=== PATIENT | male | born 1955 | race Caucasian/White ===

== ENCOUNTER 2019-11-18 05:07 | Day surgery (SDC) | payer MEDICARE ==
[~2019-11-18] VITALS: Ht 172.7 cm; Wt 95.7 kg
[2019-11-18 05:43] LABS: HEMATOCRIT 45.6 % (42.0-54.0); HEMOGLOBIN 15.3 g/dL (13.5-17.5); MCH 31.9 pg (26.0-34.0); MCHC 33.6 g/dL (31.0-37.0); MEAN PLATELET VOLUME 10.3 fL (7.4-10.4); RBC 4.8 10x6/uL (4.20-6.10); RDW 12.9 % (11.5-14.5); WBC 8.7 10x3/uL (4.8-10.8)
[2019-11-18 06:33] VITALS: BP 137/80; Ht 172.7 cm; Wt 95.7 kg
--- NOTE | 2019-11-18 09:41 | NUR ---
0930-RECD TO ROOM FROM PACU. ALERT. IV PATENT LEFT HAND. RESP WITH EASE. R SHOULDER DRESSING DRY AND INTACT, IN SLING.
--- NOTE | 2019-11-18 11:11 | NUR ---
1110 PT MORE AWAKE AND IV REMOVED AND PRESSURE HELD, INSTRUCTIONS GIVEN
--- NOTE | 2019-11-18 11:12 | NUR ---
1000 PT MAY HAVE SLEEP APNEA AND ENCOURAGED TO BE IN RECLINER OR HOB ELEVATED TONIGHT. O2 SATS DROP IN 80S BUT RETURN QUICKLY
--- NOTE | 2019-11-20 14:38 | OP ---
PATIENT NAME: PAT MOSQUEDA MEDICAL RECORD: [id number] :53 LOCATION:[facility] ADMISSION DATE: SURGEON: RAFIQ GAONA MD DATE OF OPERATION: 11/18/2019 PREOPERATIVE DIAGNOSES: 1. Right shoulder pain/impingement. 2. Acromioclavicular arthrosis. 3. Possible rotator cuff tear. POSTOPERATIVE DIAGNOSES: 1. Right shoulder pain/impingement. 2. Acromioclavicular arthrosis. 3. Chondromalacia of the posterior humeral head. PROCEDURE PERFORMED: Right shoulder scope with subacromial decompression, distal clavicle excision, and limited glenohumeral debridement. INDICATIONS FOR PROCEDURE: Mr. Mosqueda is a 64-year-old male with history of right shoulder injury approximately 3 weeks ago. He has been having worsening pain since that time and MRI was concerning for possible rotator cuff injury. He is also having symptoms of shoulder impingement. He has had a previous rotator cuff repair in the past. I talked with him about these findings and options for conservative versus surgical management. He has elected to proceed with surgery for right shoulder arthroscopy. Risks, benefits and alternatives of surgery were discussed with the patient and consent was obtained. DESCRIPTION OF PROCEDURE: The patient was met in the holding area where his identity and confirmation of procedure was performed. The right upper extremity was marked. He was taken to the operating room where he was placed supine on the operating table and anesthesia was administered. He was then positioned in the left lateral decubitus position. Extremities were positioned and padded appropriately. Right upper extremity was prepped and draped in a sterile fashion. A stockinette was applied and arm was placed into traction. The patient received preoperative antibiotics and timeout was performed before initiating the case. On initiation of the case, subacromial space was infiltrated with 20 mL of 0.25% Marcaine with epinephrine. A spinal needle was then inserted into the shoulder joint, the joint was filled with fluid. We then placed her posterior cannula, inserted the camera and placed our anterior portal through the rotator cuff interval under direct visualization. Diagnostic shoulder arthroscopy was performed. There was quite a bit of fraying and some scar tissue at the anterior labrum. The biceps tendon was intact. It did not appear to show any evidence of damage. The rotator cuff was intact. There was an approximately 1-2 cm area at the posterior humeral head that had grade IV chondromalacia. Limited glenohumeral debridement was performed. We then moved to the subacromial space. There was thickening of the bursa throughout the space. Cautery and shaver were used to debride the bursa and the bur was used to smooth the undersurface of the acromion. There was a spur at the anterior edge. There was also significant AC arthrosis. Cautery and a bur were used to perform a distal clavicle resection as well. Before and after images were obtained, there was no evidence of bursal-sided cuff damage. This completed our procedure. Instruments were removed and fluid was drained from the shoulder. Portal sites were closed with nylon suture and a sterile dressing was placed. The patient was placed into a sling, turned back over to anesthesia where he was awakened, extubated, and taken to recovery room in stable condition. OPERATIVE REPORT [id number] PAT MOSQUEDA POSTOPERATIVE PLAN: The patient is going to be discharged home with his family today. He is to remain in the sling at all times, but can come out to perform some gentle shoulder range of motion activities. We will plan to see him back in 2 weeks. COMPLICATIONS: None. ESTIMATED BLOOD LOSS: 500 mL. ANESTHESIA: General with peripheral nerve block. TRANSINT:[id number] Voice Confirmation ID: [id number] DOCUMENT ID: [id number] RAFIQ GAONA MD at 1438 CC: [id number] DICTATION DATE: 11/18/19 0900 ASTRONOMY INSTRUCTOR: 11/18/19 1153 [facility] 11/18/[address] [address]
== END 2019-11-18 11:25 | disposition home or self-care (01) ==
LOC: D.OPS 05:07
PROVIDERS: Anesthesiology; ATTEND Orthopaedic Surgery
DX: M75.41 Impingement syndrome of right shoulder (principal); M19.011 Primary osteoarthritis, right shoulder; M94.211 Chondromalacia, right shoulder

== ENCOUNTER 2020-01-06 09:26 | Inpatient (IN) | payer MEDICARE, BC ==
[~2020-01-06] VITALS: Ht 172.7 cm; Wt 86.8 kg
--- NOTE | ~2020-01-06 | OP ---
PATIENT NAME: PAT MOSQUEDA MEDICAL RECORD: [id number] :53 LOCATION:D.[place] D.1209 ADMISSION DATE:01/13/20 SURGEON: RAFIQ GAONA MD DATE OF OPERATION: 01/13/2020 PREOPERATIVE DIAGNOSIS: Osteoarthritis, right hip. POSTOPERATIVE DIAGNOSIS: Osteoarthritis, right hip. PROCEDURE PERFORMED: Right total hip arthroplasty. INDICATIONS: Mr. Mosqueda is a 64-year-old male with history of right hip pain and arthritis. Symptoms have progressively worsened to the point it is affecting his mobility. He has elected to proceed with surgery for right total hip arthroplasty. Risk, benefits, and alternatives of surgery were discussed with the patient and consent was obtained. DESCRIPTION OF PROCEDURE: The patient was met in the holding area where his identity and confirmation of procedure was performed. The right lower extremity was marked, he was taken to the operating room where he was placed supine on the operating table and anesthesia was administered. He was then positioned on the Chaplin table. Extremities were positioned and padded appropriately. Right lower extremity was prepped and draped in a sterile fashion. The patient received preoperative antibiotics and timeout was performed for initiation of the case. An anterior Ortega-Manzano approach was utilized for exposure. We incised the skin and subcutaneous tissues and dissected down to the tensor fascia. The fascia was then split longitudinally. The interval between tensor and sartorius/rectus was utilized for deep exposure. We continued our dissection deep to identify the lateral circumflex vessels. These were tagged and cauterized. I dissected down to the anterior hip capsule and placed retractors around the superior and inferior femoral neck. Retractor was also placed over the anterior brim of the acetabulum. Anterior hip capsule was then excised. Retractors were repositioned around the femoral neck and our femoral neck cut was then completed. The femoral head was removed with the corkscrew device. Retractors were then repositioned around the acetabulum and acetabulum was debrided. We then began reaming starting with a size 43 reamed up sequentially to a size [address] a 52-mm cup. The cup was placed and malleted into position. Imaging was obtained that showed good alignment and fit of our cup. The center cap was then placed followed by the liner. We then turned our attention to the proximal femur. The leg was externally rotated. A hook was placed under the proximal femur. The leg was taken into extension and adduction. Retractors were placed in the medial calcar and over the greater trochanter. Tissue from the shoulder was released. The proximal femur was elevated to allow for full exposure. Once we were pleased with our exposure, we began preparation of the proximal femur. The cookie cutter was used followed by the canal finder. We then began with the size 4 broach. Broaching was sequentially to a size 10, at which point, we had good fit within the proximal femur. This was trialled with a neutral neck and 36-mm head. We had difficulty reducing it; therefore, trialled with the -3 neck. The hip was able to be reduced and was stable. Images were obtained that showed a good fit of our components with near equal leg lengths. The hip was again dislocated and repositioned. Final components were then placed. The stem was malleted into position and the ceramic 36-mm -3 head was impacted. The hip was again reduced and images were obtained that showed good fit and alignment of our components. Wound was irrigated thoroughly with saline. Joint solution was injected around OPERATIVE REPORT [id number] PAT MOSQUEDA the capsule and the proximal femur. The IT band clip was then closed with running Vicryl suture. Subcutaneous tissues were closed with 2-0 Vicryl and the skin was closed with Monocryl and Prineo Dermabond dressing. Sterile dressing was placed. The patient was turned back over to anesthesia where he was awakened, extubated, and taken to recovery room in stable condition. POSTOPERATIVE PLAN: The patient was noted to be admitted for routine postoperative care. He received 24 hours postop antibiotics and will be started on DVT prophylaxis tomorrow. Physical therapy will be consulted to assist with mobility, weightbearing as tolerated on the right lower extremity. PLAN: Home with home health later this week. ANESTHESIA: General. COMPLICATIONS: None. ESTIMATED BLOOD LOSS: 200 mL. Vida salguero was present for the case and performed wound closure at the end. TRANSINT:[id number] Voice Confirmation ID: [id number] DOCUMENT ID: [id number] RAFIQ GAONA MD CC: [id number] DICTATION DATE: 01/13/201213 INFANTRY ASSAULTMAN: 01/13/202031 ADM IN [place] [address] [place] [address]
[2020-01-06 11:49] LABS: BASOPHILS 0.1 % (0-2); EOSINOPHILS 2.5 % (0-7); HEMATOCRIT 45.5 % (42.0-54.0); HEMOGLOBIN 15.5 g/dL (13.5-17.5); IMMATURE GRANULOCYTES 0.1 % (0-5); LYMPHOCYTES 35.7 % (15-50); MCHC 34.1 g/dL (31.0-37.0); MEAN PLATELET VOLUME 10.4 fL (7.4-10.4); MONOCYTES 7.3 % (2-11); NEUTROPHILS 54.3 % (40-80); PLATELET COUNT 261 10x3/uL (130-400); RBC 4.84 10x6/uL (4.20-6.10); RDW 12.9 % (11.5-14.5); WBC 7.1 10x3/uL (4.8-10.8)
[2020-01-06 11:53] LABS: BILIRUBIN NEGATIVE (NEGATIVE); KETONE NEGATIVE (NEGATIVE); NITRITE NEGATIVE (NEGATIVE); UROBILINOGEN NORMAL mg/dL (< 2)
[2020-01-06 11:59] LABS: ANION GAP 6.4 mmol/L (8-16); CALCIUM 8.7 mg/dL (8.5-10.1); CARBON DIOXIDE 31.3 mmol/L (21.0-32.0); CREATININE - SERUM 1.1 mg/dL (0.6-1.3); POTASSIUM - SERUM 3.7 mmol/L (3.5-5.1)
[2020-01-06 12:00] LABS: APTT 30.2 SECONDS (22.8-39.4); PROTIME 13.1 SECONDS (11.6-15.0)
[2020-01-13 06:39] VITALS: BP 130/93; BMI 29.1
[2020-01-13 12:48] VITALS: BP 119/70
[2020-01-13 14:36] VITALS: Ht 172.7 cm; Wt 86.8 kg
[2020-01-13 19:51] VITALS: BP 142/62; BP 91/46
--- NOTE | 2020-01-13 20:00 | NUR ---
ALERT RESTING IN BED, SEE SHIFT ASSESSMENT, DENIES PAIN OR NEEDS AT THIS TIME, CALL LIGHT IN REACH
[2020-01-14 04:37] VITALS: BP 114/67
--- NOTE | 2020-01-14 07:10 | NUR ---
PT RESTING QUIETLY WATCHING TV. RESP EVEN AND UNLABORED. REPORTS PAIN 2/10 AT THIS TIME. DRESSING C/D/I TO RIGHT HIP. IV TO LEFT FOREARM WITH NS @ [facility] INFUSING VIA PUMP. SITE WITHOUT REDNESS OR EDEMA. DENIES FURTHER NEEDS AT THIS TIME. CL WITHIN REACH. ENCOURAGED TO CALL WITH NEEDS. CONTINUE POC
[2020-01-14 08:22] LABS: HEMATOCRIT 32.2 % (42.0-54.0); HEMOGLOBIN 10.7 g/dL (13.5-17.5); MCH 31.3 pg (26.0-34.0); MCHC 33.2 g/dL (31.0-37.0); MCV 94.2 fL (80.0-100.0); MEAN PLATELET VOLUME 10.4 fL (7.4-10.4); RBC 3.42 10x6/uL (4.20-6.10); RDW 12.9 % (11.5-14.5); WBC 16.4 10x3/uL (4.8-10.8)
[2020-01-14 08:38] VITALS: BP 131/72
[2020-01-14 10:06] LABS: BILIRUBIN NEGATIVE (NEGATIVE); KETONE NEGATIVE (NEGATIVE); NITRITE NEGATIVE (NEGATIVE); UROBILINOGEN NORMAL mg/dL (< 2)
[2020-01-14 11:39] VITALS: BP 132/82
[2020-01-14] MEDS ORDERED: ELIQUIS2.5 MG PO (13:43)
[2020-01-14] MEDS ORDERED: NORCO 7.5-3251 EACH PO (13:44)
--- NOTE | 2020-01-14 14:01 | MORECARE ---
CASE MANAGEMENT DISCHARGE SUMMARY PATIENT: PAT MOSQUEDA UNIT: [id number] ADM DATE: 01/13/20 AGE: 64 : 54 SEX: M ROOM/BED: D.1209 AUTHOR: ARABELLA WHITESIDE PHYSICIAN: REFERRING PHYSICIAN: RAFIQ GAONA MD DATE OF SERVICE: 01/14/20 Discharge Plan Patient Name: PAT MOSQUEDA Facility: [facility]:[place] : 1955 Planned Disposition: Home Health Service Anticipated Discharge Date: 01/14/20 Discharge Date: Expected LOS: 1 Initial Reviewer: [id number] Initial Review Date: 01/06/2020 Generated: 01/14/20 3:00 pm Comments DCP- Discharge Planning Updated by [id number]: Pippa Root on 01/14/20 12:[address] CM met with patient regarding DC needs/plans. Patient is in agreement to proceed with the interview. PCP: Dr. Solorzano. [facility] Patient has been able to obtain all prescribed medications. Stairs/steps None. Emergency contact: Teresa Mosqueda () [phone]. Patient is independent with ADL's/ medication management COIL WINDER STRAP. HHS: Care IV, DENICE signed ([phone]). DME: Walker ([facility])will be delivered to patient's room prior to DC. CM discussed the availability of HHS, Rehab, SNF, OP Therapy. Patient feels his home environment is a safe place to discharge. Patient denies being hospitalized within past 30 days. Denies use of community services COIL WINDER STRAP. Patient's , Teresa, will drive him home and parts picker medications. External Providers External Provider: [facility] Next Contact Date: Service Request Date: Service Type: Resolution: Reviewer: Comments: Coverage Notice Reviewer: [id number] - Pippa Root Notice Issued Date-Time: 01/14/2020 13:56 Notice Type: Patient Choice Letter Notice Delivered To: Patient Relationship to Patient: Self Sales Associate Cashier Name: Pat Mosqueda Delivery Method: HAND - Hand Delivered Mary Days: Prior Verbal Notification: Recipient Understood Notice: Yes Recipient Signature: Yes Med Rec Note Co-signed by Attending: Coverage Notice Comment: Patient Choice for Care IV HHS signed. Copy to patient. Original to chart. Patient Name: PAT MOSQUEDA Page [phone] at 1401 All edits/amendments must be made on the electronic document DICTATION DATE: 01/14/201399 PROGRAM OR PROJECT ADMINISTRATOR: PHILIPPE 01/14/20 1400 RPT#: [id number] DC DATE: STATUS: ADM IN [facility] [address] [place] [address] END OF REPORT
--- NOTE | 2020-01-14 14:25 | MORECARE ---
CASE MANAGEMENT DISCHARGE SUMMARY PATIENT: PAT MOSQUEDA UNIT: [id number] ADM DATE: 01/13/20 AGE: 64 : 53 SEX: M ROOM/BED: D.1209 AUTHOR: STEVO,DOC PHYSICIAN: REFERRING PHYSICIAN: RAFIQ GAONA MD DATE OF SERVICE: 01/14/20 Discharge Plan Patient Name: PAT MOSQUEDA Facility: [facility]:[place] : 1955 Planned Disposition: Home Health Service Anticipated Discharge Date: 01/14/20 Discharge Date: Expected LOS: 1 Initial Reviewer: [id number] Initial Review Date: 01/06/2020 Generated: 01/14/20 3:25 pm Comments DCP- Discharge Planning Updated by [id number]: Pippa Root on 01/14/20 1:[address] CM verified with Joellen ([phone]) that 01/16 or 01/17 will be ok for [facility] to start dressing changes. CM met with patient regarding DC needs/plans. Patient is in agreement to proceed with the interview. PCP: Dr. Solorzano. Pharmacy: [facility]. Patient has been able to obtain all prescribed medications. Stairs/steps None. Emergency contact: Teresa Mosqueda () [phone]. 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 HHS: Care IV, DENICE signed ([phone]). DME: Walker ([facility])will be delivered to patient's room prior to DC. CM discussed the availability of HHS, Rehab, SNF, OP Therapy. Patient feels his home environment is a safe place to discharge. Patient denies being hospitalized within past 30 days. Denies use of community services DEPARTMENTAL BUYER. Patient's , Teresa, will drive him home and curing pickling packer medications. Coverage Notice Reviewer: [id number] - Pippa Root Notice Issued Date-Time: 01/14/2020 13:56 Notice Type: Patient Choice Letter Notice Delivered To: Patient Relationship to Patient: Self Target Trimmer Name: Pat Mosqueda Delivery Method: HAND - Hand Delivered Mary Days: Prior Verbal Notification: Recipient Understood Notice: Yes Recipient Signature: Yes Med Rec Note Co-signed by Attending: Coverage Notice Comment: Patient Choice for Care IV HHS signed. Copy to patient. Original to chart. Last DP export: 01/14/20 1:01 p Patient Name: PAT MOSQUEDA Page [id number] at 1425 All edits/amendments must be made on the electronic document DICTATION DATE: 01/14/201424 POOL TECHNICIAN: PHILIPPE 01/14/20 142 RPT#: [id number] DC DATE: STATUS: ADM IN [facility] [address] [place] [address] END OF REPORT
--- NOTE | 2020-01-14 14:35 | MORECARE ---
CASE MANAGEMENT DISCHARGE SUMMARY PATIENT: PAT MOSQUEDA UNIT: [id number] ADM DATE: 01/13/20 AGE: 64 : 53 SEX: M ROOM/BED: D.1209 AUTHOR: ARABELLA WHITESIDE PHYSICIAN: REFERRING PHYSICIAN: RAFIQ GAONA MD DATE OF SERVICE: 01/14/20 Discharge Plan Patient Name: PAT MOSQUEDA Facility: [facility]:[place] : 1955 Planned Disposition: Home Health Service Anticipated Discharge Date: 01/14/20 Discharge Date: Expected LOS: 1 Initial Reviewer: [id number] Initial Review Date: 01/06/2020 Generated: 01/14/20 3:34 pm Comments DCP- Discharge Planning Updated by [email or web address]: Pippa Root on 01/14/20 1:[address] 1430: CM notified Sunday, with Care IV, that either Saturday or Saturday are OK to start dressing changes. CM verified with Joellen ([phone]) that 01/16 or 01/17 will be ok for HHS to start dressing changes. CM met with patient regarding DC needs/plans. Patient is in agreement to proceed with the interview. PCP: Dr. Solorzano. Pharmacy: [facility]. Patient has been able to obtain all prescribed medications. Stairs/steps None. Emergency contact: Teresa Mosqueda () [phone]. Patient is independent with ADL's/ medication management FACILITIES CUSTODIAN. HHS: Care IV, DENICE signed ([phone]). DME: Walker ([facility])will be delivered to patient's room prior to DC. CM discussed the availability of HHS, Rehab, SNF, OP Therapy. Patient feels his home environment is a safe place to discharge. Patient denies being hospitalized within past 30 days. Denies use of community services FACILITIES CUSTODIAN. Patient's , Teresa, will drive him home and picking crew supervisor medications. Coverage Notice Reviewer: [id number] - Pippa Root Notice Issued Date-Time: 01/14/2020 13:56 Notice Type: Patient Choice Letter Notice Delivered To: Patient Relationship to Patient: Self Supervisor Customer Records Division Name: Pat Mosqueda Delivery Method: HAND - Hand Delivered Mary Days: Prior Verbal Notification: Recipient Understood Notice: Yes Recipient Signature: Yes Med Rec Note Co-signed by Attending: Coverage Notice Comment: Patient Choice for Care IV HHS signed. Copy to patient. Original to chart. Last DP export: 01/14/20 1:25 p Patient Name: PAT MOSQUEDA Page [id number] at 1435 All edits/amendments must be made on the electronic document DICTATION DATE: 01/14/201433 SLASHER RUNNER: PHILIPPE 01/14/201433 RPT#: [id number] DC DATE: STATUS: ADM IN [facility] [address] [place] [address] END OF REPORT
--- NOTE | 2020-01-14 14:57 | MORECARE ---
CASE MANAGEMENT DISCHARGE SUMMARY PATIENT: PAT MOSQUEDA UNIT: [id number] ADM DATE: 01/13/20 AGE: 64 : 54 SEX: M ROOM/BED: D.1209 AUTHOR: STEVODOC PHYSICIAN: REFERRING PHYSICIAN: RAFIQ GAONA MD DATE OF SERVICE: 01/14/20 Discharge Plan Patient Name: PAT OMSQUEDA Facility: [facility]:[place] : 1955 Planned Disposition: Home Health Service Anticipated Discharge Date: 01/14/20 Discharge Date: Expected LOS: 1 Initial Reviewer: [email or web address] Initial Review Date: 01/06/2020 Generated: 01/14/20 3:57 pm Comments DCP- Discharge Planning Updated by [email or web address]: Pippa Root on 01/14/20 1:[address] 1430: CM notified Sunday, with Care IV, that either Saturday or Saturday are OK to start dressing changes. HH plans to start care Saturday, 01/16. CM verified with Joellen ([phone]) that 01/16 or 01/17 will be ok for [facility] to start dressing changes. CM met with patient regarding DC needs/plans. Patient is in agreement to proceed with the interview. PCP: Dr. Solorzano. Pharmacy: [facility]. Patient has been able to obtain all prescribed medications. Stairs/steps None. Emergency contact: Teresa Mosqueda () [phone]. 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 HHS: Care IV, DENICE signed ([phone]). DME: Walker ([facility])will be delivered to patient's room prior to DC. CM discussed the availability of HHS, Rehab, SNF, OP Therapy. Patient feels his home environment is a safe place to discharge. Patient denies being hospitalized within past 30 days. Denies use of community services SUPERVISOR ELECTRIC. Patient's , Teresa, will drive him home and pharmacy picking technician medications. DCPIA - Discharge Planning Initial Assessment Updated by [email or web address]: Pippa Root on 01/14/20 2:52 pm * Is the patient Alert and Oriented? Yes * How many steps to enter\exit or inside your home? * PCP DR. Solorzano * Pharmacy [facility] [place] * Preadmission Environment Home with Family * ADLs Independent * Other Equipment Walker delivered today, [employer] * List name and contact numbers for known caregivers / representatives who currently or will assist patient after discharge: Teresa Mosqueda [phone] * Verbal permission to speak to the caregivers and representatives has been obtained from the patient. Yes * Community resources currently utilized None * Please name any agencies selected above. Care IV HHS * Additional services required to return to the preadmission environment? Yes * Can the patient safely return to the preadmission environment? Yes * Has this patient been hospitalized within the prior 30 days at any hospital? No Coverage Notice Reviewer: [id number] Moses Root Notice Issued Date-Time: 01/14/2020 13:56 Notice Type: Patient Choice Letter Notice Delivered To: Patient Relationship to Patient: Self Preventive Maintenance Coordinator Name: Pat Mosqueda Delivery Method: HAND - Hand Delivered Mary Days: Prior Verbal Notification: Recipient Understood Notice: Yes Recipient Signature: Yes Med Rec Note Co-signed by Attending: Coverage Notice Comment: Patient Choice for Care IV HHS signed. Copy to patient. Original to chart. Last DP export: 01/14/20 1:35 p Patient Name: PAT MOSQUEDA Page [phone] at 1457 All edits/amendments must be made on the electronic document DICTATION DATE: 01/14/201456 INDEPENDENT DRIVER: PHILIPPE 01/14/20 1457 RPT#: [id number] DC DATE: STATUS: ADM IN [facility] [address] [place] [address] END OF REPORT
--- NOTE | 2020-01-14 16:14 | MORECARE ---
CASE MANAGEMENT DISCHARGE SUMMARY PATIENT: PAT MOSQUEDA UNIT: [id number] ADM DATE: 01/13/20 AGE: 64 : 53 SEX: M ROOM/BED: D.1209 AUTHOR: STEVO,DOC PHYSICIAN: REFERRING PHYSICIAN: RAFIQ GAONA MD DATE OF SERVICE: 01/14/20 Discharge Plan Patient Name: PAT MOSQUEDA Facility: [facility]:[place] : 1955 Planned Disposition: Home Health Service Anticipated Discharge Date: 01/14/20 Discharge Date: 01/14/2020 Expected LOS: 1 Initial Reviewer: [id number] Initial Review Date: 01/06/2020 Generated: 01/14/20 5:14 pm Comments DCP- Discharge Planning Updated by [email or web address]: Pippa Root on 01/14/20 1:[address] 1430: CM notified Sunday, with Care IV, that either Saturday or Saturday are OK to start dressing changes. HH plans to start care Saturday, 01/16. CM verified with Joellen ([phone]) that 01/16 or 01/17 will be ok for [facility] to start dressing changes. CM met with patient regarding DC needs/plans. Patient is in agreement to proceed with the interview. PCP: Dr. Solorzano. Pharmacy: [facility]. Patient has been able to obtain all prescribed medications. Stairs/steps None. Emergency contact: Teresa Mosqueda () [phone]. Patient is independent with ADL's/ medication management OFFICE SPEC. HHS: Care IV, DENICE signed ([phone]). DME: Walker ([facility])will be delivered to patient's room prior to DC. CM discussed the availability of HHS, Rehab, SNF, OP Therapy. Patient feels his home environment is a safe place to discharge. Patient denies being hospitalized within past 30 days. Denies use of community services OFFICE SPEC. Patient's , Teresa, will drive him home and shrimp picker medications. DCPIA - Discharge Planning Initial Assessment Updated by [id number]: Pippa Root on 01/14/20 2:52 pm * Is the patient Alert and Oriented? Yes * How many steps to enter\exit or inside your home? * PCP DR. Solorzano * Pharmacy [facility] [place] * Preadmission Environment Home with Family * ADLs Independent * Other Equipment Walker delivered today, [employer] * List name and contact numbers for known caregivers / representatives who currently or will assist patient after discharge: Teresa Mosqueda [phone] * Verbal permission to speak to the caregivers and representatives has been obtained from the patient. Yes * Community resources currently utilized None * Please name any agencies selected above. Care IV HHS * Additional services required to return to the preadmission environment? Yes * Can the patient safely return to the preadmission environment? Yes * Has this patient been hospitalized within the prior 30 days at any hospital? No Coverage Notice Reviewer: [id number] Moses Root Notice Issued Date-Time: 01/14/2020 13:56 Notice Type: Patient Choice Letter Notice Delivered To: Patient Relationship to Patient: Self Orthodontic Technician Assistant Name: Pat Mosqueda Delivery Method: HAND - Hand Delivered Mary Days: Prior Verbal Notification: Recipient Understood Notice: Yes Recipient Signature: Yes Med Rec Note Co-signed by Attending: Coverage Notice Comment: Patient Choice for Care IV HHS signed. Copy to patient. Original to chart. Last DP export: 01/14/20 1:57 p Patient Name: PAT MOSQUEDA Page [phone] at 1614 All edits/amendments must be made on the electronic document DICTATION DATE: 01/14/201613 GENERAL MANAGER FARM: PHILIPPE 01/14/20 1614 RPT#: [id number] DC DATE:01/14/20 STATUS: DIS IN [facility] [address] [place] [address] END OF REPORT
--- NOTE | 2020-01-18 14:38 | MORECARE ---
CASE MANAGEMENT DISCHARGE SUMMARY PATIENT: PAT MOSQUEDA UNIT: [id number] ADM DATE: 01/13/20 AGE: 64 : 53 SEX: M ROOM/BED: D.1209 AUTHOR: STEVO,DOC PHYSICIAN: REFERRING PHYSICIAN: RAFIQ GAONA MD DATE OF SERVICE: 01/18/20 Discharge Plan Patient Name: PAT MOSQUEDA Facility: [facility]:[place] : 1955 Planned Disposition: Home Health Service Anticipated Discharge Date: 01/14/20 Discharge Date: 01/14/2020 Expected LOS: 1 Initial Reviewer: [email or web address] Initial Review Date: 01/06/2020 Generated: 01/18/20 3:37 pm Comments DCP- Discharge Planning Updated by [email or web address]: Pippa Root on 01/18/20 1:[address] Contacted by Sunday H[place], [facility], with report that HHS SOC 01/16. DCP- Discharge Planning Updated by [email or web address]: Pippa Root on 01/14/20 1:[address] 1430: CM notified Sunday, with Care IV, that either Saturday or Saturday are OK to start dressing changes. HH plans to start care Saturday, 01/16. CM verified with Joellen ([phone]) that 01/16 or 01/17 will be ok for [facility] to start dressing changes. CM met with patient regarding DC needs/plans. Patient is in agreement to proceed with the interview. PCP: Dr. Solorzano. Pharmacy: [facility]. Patient has been able to obtain all prescribed medications. Stairs/steps None. Emergency contact: Teresa Mosqueda () [phone]. 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 HHS: Care IV, DENICE signed ([phone]). DME: Walker ([employer])will be delivered to patient's room prior to DC. CM discussed the availability of HHS, Rehab, SNF, OP Therapy. Patient feels his home environment is a safe place to discharge. Patient denies being hospitalized within past 30 days. 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 DCPIA - Discharge Planning Initial Assessment Updated by [email or web address]: Pippa Root on 01/14/20 2:52 pm * Is the patient Alert and Oriented? Yes * How many steps to enter\exit or inside your home? * PCP DR. Solorzano * Pharmacy [facility] * Preadmission Environment Home with Family * ADLs Independent * Other Equipment Walker delivered today, [employer] * List name and contact numbers for known caregivers / representatives who currently or will assist patient after discharge: Teresa Mosqueda [phone] * Verbal permission to speak to the caregivers and representatives has been obtained from the patient. Yes * Community resources currently utilized None * Please name any agencies selected above. Care IV HHS * Additional services required to return to the preadmission environment? Yes * Can the patient safely return to the preadmission environment? Yes * Has this patient been hospitalized within the prior 30 days at any hospital? 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 Copy to patient. Original to chart. Last DP export: 01/14/20 3:14 p Patient Name: PAT MOSQUEDA Page [id number] at 1438 All edits/amendments must be made on the electronic document DICTATION DATE: 01/18/20 1437 SECRETARIAL TEACHER: PHILIPPE 01/18/20 1437 RPT#: [id number] DC DATE:01/14/20 STATUS: DIS IN [facility] [address] [place] [address] END OF REPORT
== END 2020-01-14 15:45 | disposition home health service (06) | DRG 470 ==
LOC: D.SDCHOLD 10:00 → D.M3 01-13 05:45 → D.SDCHOLD 01-13 07:30 → D.M3 01-13 12:47
PROVIDERS: ADMIT Orthopaedic Surgery; ATTEND Orthopaedic Surgery
PROC: 0SR90JZ Replacement of Right Hip Joint with Synthetic Substitute, Open Approach (ICD-10-PCS; principal; 2020-01-13 07:45)
DX: M16.11 Unilateral primary osteoarthritis, right hip (principal)

== ENCOUNTER → 2020-09-12 12:36 | Outpatient (CLI) | payer MEDICARE, BC ==
[2020-01-13 14:36] VITALS: BMI 29.1
[~2020-09-12 12:36] MED LIST: ELIQUIS2.5 MG PO; NORCO 7.5-3251 EACH PO
[2020-09-12 13:08] LABS: CREATININE - SERUM 1.1 mg/dL (0.6-1.3)
== END | disposition home or self-care (01) ==
LOC: D.CT 12:36
PROVIDERS: ATTEND Internal Medicine Gastroenterology
DX: R10.84 Generalized abdominal pain (principal)